=== PATIENT | female | born 1950 | race Caucasian/White ===

== ENCOUNTER 2017-06-29 17:43 | Emergency (ER) | payer MEDICARE, OTHER ==
[~2017-06-29] VITALS: Ht 152.4 cm; Wt 54.5 kg
[~2017-06-29 17:43] MED LIST: ASPIRIN 32325 MG/TAB PO; ASPIRIN E.C. 8181 MG PO; FISH OIL1000 MG PO; IMDUR 60MG60 MG/TAB PO; LEXAPRO 10MG10 MG PO; LIPITOR 40MG TA40 MG PO; LIPITOR20 MG PO; NITROSTAT0.4 MG/TAB SL; PEPCID 20MG TAB20 MG PO; PLAVIX 75MG TAB75 MG PO; PRIL40 PO; ZEBETA 5MG5 MG PO
[2017-06-29 17:52] VITALS: TEMP 97.8
[2017-06-29] MEDS ORDERED: CRESTOR5 MG PO (17:57)
[2017-06-29 18:08] LABS: BASO % 0.3 % (0.0-2.0); EOS # 0.1 (0.0-0.7); EOS % 1.9 % (0-4.0); GRAN # 2.9 (1.4-6.5); GRAN % 41.7 % (42.2-75.2); HEMATOCRIT 38.6 % (37.0-47.0); HEMOGLOBIN 12.8 g/dl (12.5-16.0); LYMPH # 3.3 (1.2-3.4); LYMPH % 47.2 % (20.0-51.0); MEAN CELL VOLUME 89 fl (80.0-100.0); MEAN CORPUSCULAR HEMOGLOBIN 29 pg (27.0-31.0); MEAN CORPUSCULAR HGB CONC 33 g/dl (33.0-37.0); MEAN PLATELET VOLUME 10.6 fl (7.4-10.4); MONO # 0.6 (0.1-0.6); MONO % 8.6 % (1.7-9.3); PLATELET COUNT 202 K/mm3 (130-400); RED BLOOD COUNT 4.36 M/mm3 (4.10-5.30); REDCELL DISTRIBUTION WIDTH-CV 13.6 % (11.5-14.5)
[2017-06-29 18:10] LABS: PROTHROMBIN TIME 11.3 SECONDS (9.7-12.8)
[2017-06-29 18:12] LABS: PARTIAL THROMBOPLASTIN TIME 26.1 SECONDS (26.0-37.0)
[2017-06-29 18:22] LABS: ALANINE AMINOTRANSFERASE 42 U/L (9-52); ALBUMIN 4.5 gm/dL (3.5-5.0); ALKALINE PHOSPHATASE 94 U/L (50-136); ANION GAP 8 mmol/L (7-16); AST,SGOT 43 U/L (15-37); BILIRUBIN,TOTAL 0.4 mg/dL (0.0-1.0); BLOOD UREA NITROGEN 16 mg/dL (7-17); CALCIUM 9.6 mg/dL (8.4-10.2); CARBON DIOXIDE 28 mmol/L (22-30); CHLORIDE 103 mmol/L (98-107); CREATININE, serum 0.93 mg/dL (0.52-1.25); GLUCOSE 102 mg/dL (74-106); POTASSIUM 3.8 mmol/L (3.4-5.0); SODIUM 139 mmol/L (137-145); TOTAL PROTEIN 7.4 gm/dL (6.4-8.2)
[2017-06-29 18:43] LABS: TROPONIN-I < 0.012 ng/mL (0.000-0.034)
[2017-06-29 20:36] VITALS: BP 114/56; PULSE 62
== END 2017-06-29 20:13 | disposition home or self-care (01) ==
LOC: COL.ER 17:43
PROVIDERS: Family Medicine
DX: R07.89 Other chest pain (principal); I25.10 Atherosclerotic heart disease of native coronary artery without angina pectoris; Z79.82 Long term (current) use of aspirin

== ENCOUNTER 2018-08-06 09:35 | Emergency (ER) | payer MEDICARE, OTHER ==
[~2018-08-06] VITALS: Ht 152.4 cm; Wt 53.6 kg
[~2018-08-06 09:35] MED LIST changes: +CRESTOR5 MG PO
[2018-08-06 09:42] VITALS: TEMP 97
[2018-08-06] MEDS ORDERED: PROTONIX 40MG T40 MG (10:15)
[2018-08-06] MEDS ORDERED: THE MEDICINE S200 M2 PO (10:18)
[2018-08-06] MEDS ORDERED: KRILL OIL 1,001 EAC1 PO (10:18)
[2018-08-06] MEDS ORDERED: CEFACLOR250 MG PO (10:19)
[2018-08-06] MEDS ORDERED: NORCO2.5 PO (11:58)
[2018-08-06 12:27] VITALS: BP 149/71; PULSE 75
== END 2018-08-06 12:25 | disposition home or self-care (01) ==
LOC: COL.ER 09:35
DX: S22.060A Wedge compression fracture of T7-T8 vertebra, initial encounter for closed fracture (principal); W10.8XXA Fall (on) (from) other stairs and steps, initial encounter; Y92.009 Unspecified place in unspecified non-institutional (private) residence as the place of occurrence of the external cause; Z79.82 Long term (current) use of aspirin
CPT/HCPCS: J1885

== ENCOUNTER 2018-08-30 12:29 | Outpatient (CLI) | payer MEDICARE, OTHER ==
[~2018-08-30] VITALS: Ht 152.5 cm; Wt 53.3 kg
[2018-08-30] VITALS (7 sets, daily range): BP systolic 103–137; BP diastolic 45–71; PULSE 60–72; TEMP 98–98.1
[~2018-08-30 12:29] MED LIST changes: +CEFACLOR250 MG PO; +KRILL OIL 1,001 EAC1 PO; +NORCO2.5 PO; +PROTONIX 40MG T40 MG PO; +THE MEDICINE S200 M2 PO
[2018-08-30] MEDS ORDERED: CRESTOR5 MG PO (13:03)
--- NOTE | 2018-08-30 13:53 | NUR ---
ALL MEDICATIONS GIVEN WITH VORB WITH MD. SEE MERGE FOR ALL MEDICATION ADMIN TIMES. SEE MERGE FOR ALL RASS ASSESSMENTS DURING AND POST PROCEDURE.
--- NOTE | 2018-08-30 14:30 | NUR ---
pt returned via bed from laboratory technical specialist. has 2 bandaids to upper back that are clean and dry. pt is drowsy, but talks to and staff. call light in reach,
--- NOTE | 2018-08-30 15:00 | NUR ---
pt sips on water, request no diet at this time, dozes in bed, no c/o
--- NOTE | 2018-08-30 16:00 | NUR ---
takes Dr Jakob rios into see pt at 1615, iv d'cd intact, pt sits on side of bed, states having soreness/tightness to back area and rib area. reviewed discharge inst. with pt and on site care and moderate sedation effects with verbal understandng.
--- NOTE | 2018-08-30 16:30 | NUR ---
pt up in room, then discharged via w/c to car with
== END 2018-08-30 16:30 | disposition home or self-care (01) ==
LOC: COL.CAR 12:29
DX: S22.050A Wedge compression fracture of T5-T6 vertebra, initial encounter for closed fracture (principal); Z90.11 Acquired absence of right breast and nipple; Z88.2 Allergy status to sulfonamides
CPT/HCPCS: J2250; J3010

== ENCOUNTER 2021-09-02 10:17 | Observation (INO) | payer MEDICARE, OTHER ==
[2021-09-02] VITALS (14 sets, daily range): BP systolic 120–138; BP diastolic 44–69; PULSE 58–65; TEMP 97.9–98.1
[~2021-09-02] VITALS: Ht 152.4 cm; Wt 54.0 kg
[2021-09-02 11:59] LABS: BASO % 0.8 % (0.0-2.0); EOS # 0.1 K/mm3 (0.0-0.7); EOS % 2.3 % (0.0-4.0); GRAN # 2.7 K/mm3 (1.4-6.5); GRAN % 50.7 % (42.2-75.2); HEMATOCRIT 41.3 % (37.0-47.0); HEMOGLOBIN 14.1 g/dl (12.5-16.0); LYMPH # 1.9 K/mm3 (1.2-3.4); LYMPH % 36.5 % (20.0-51.0); MEAN CELL VOLUME 85 fl (80.0-100.0); MEAN CORPUSCULAR HEMOGLOBIN 29 pg (27-31); MEAN CORPUSCULAR HGB CONC 34 g/dl (33.0-37.0); MEAN PLATELET VOLUME 11.1 fl (7.4-10.4); MONO # 0.5 K/mm3 (0.1-0.6); MONO % 9.3 % (1.7-9.3); PLATELET COUNT 245 K/mm3 (130-400); RED BLOOD COUNT 4.87 M/mm3 (4.10-5.30)
[2021-09-02 12:09] LABS: ALANINE AMINOTRANSFERASE 17 U/L (0-55); ALKALINE PHOSPHATASE 73 U/L (40-150); ANION GAP 10 mmol/L (7-16); AST,SGOT 17 U/L (5-34); BILIRUBIN,TOTAL 0.5 mg/dL (0.2-1.2); BLOOD UREA NITROGEN 14 mg/dL (10-20); CALCIUM 9.6 mg/dL (8.4-10.2); CARBON DIOXIDE 27 mmol/L (23-31); CHLORIDE 104 mmol/L (98-107); CREATININE, serum 0.86 mg/dL (0.57-1.11); GLUCOSE 103 mg/dL (70-99); LIPASE 24 U/L (8-78); POTASSIUM 3.8 mmol/L (3.5-4.5); SODIUM 141 mmol/L (136-145); TOTAL PROTEIN 7.4 gm/dL (6.2-8.1)
[2021-09-02 12:16] LABS: TROPONIN-I < 0.010 ng/mL (0.00-0.033)
--- NOTE | 2021-09-02 15:36 | NUR ---
PATIENT ALERT AND ORIENTED, VERBALIZES UNDERSTANDING PROCEDURE. NO REPORTS OF CHEST PAIN AT THIS TIME. PATIENT SIGNS CONSENT. TO UPDATE FAMILY. PLEASE SEE MERGE FOR DETAILS ABOUT PROCEDURE INCLUDING HEMODYNAMIC MONITORING WELL MEDICATION ADMINISTRATION.
--- NOTE | 2021-09-02 16:00 | NUR ---
Pt arrived to medical unit room 308 from slab conditioner supervisor at this time. Oriented pt to room, post-op checks initiated. Vitals stable at this time and right femoral access site CDI, w/o s/s complication.
[2021-09-02] MEDS ORDERED: CRESTOR 10MG10 MG PO (17:47)
--- NOTE | 2021-09-02 19:02 | NUR ---
PATIENT ADMITTED FROM INFRASTRUCTURE TECH, FEM SITE STABLE, CLEAN DRY AND INTACT. PLESANT. FLAT TIME UNTIL 2200. NO C/O PAIN. NO SIGNIFICANT EVENTS, ADMISSION COMPLETED.
--- NOTE | 2021-09-02 20:20 | NUR ---
Patient is resting in bed with at the bedside. Alert and oriented x 4, VSS. Telemetry in place, NSR. Getting 1/2 NS. Right femoral puncure clean, dry intact. No edema BLE. Good pulses. Assessment completed, meds provided. No other needs at this time. Call kala cuevas.
[2021-09-03 00:11] VITALS: BP 135/52; PULSE 61; TEMP 97.8
[2021-09-03 03:55] VITALS: BP 131/54; PULSE 58; TEMP 97.5
[2021-09-03 06:14] LABS: BASO % 0.5 % (0.0-2.0); EOS # 0.2 K/mm3 (0.0-0.7); EOS % 2.6 % (0.0-4.0); HEMATOCRIT 37.5 % (37.0-47.0); HEMOGLOBIN 12.6 g/dl (12.5-16.0); LYMPH # 2.5 K/mm3 (1.2-3.4); LYMPH % 38.2 % (20.0-51.0); MEAN CELL VOLUME 85 fl (80.0-100.0); MEAN CORPUSCULAR HEMOGLOBIN 29 pg (27-31); MEAN CORPUSCULAR HGB CONC 34 g/dl (33.0-37.0); MEAN PLATELET VOLUME 10.7 fl (7.4-10.4); MONO # 0.7 K/mm3 (0.1-0.6); MONO % 11.5 % (1.7-9.3); PLATELET COUNT 211 K/mm3 (130-400)
--- NOTE | 2021-09-03 06:17 | NUR ---
Patient has had a calm night. She just complained of some headache, tylenol provided. All needs met. Report will be given to day RN.
[2021-09-03 06:36] LABS: CHOLESTEROL RISK RATIO 3.1; CREATININE, serum 0.81 mg/dL (0.57-1.11); POTASSIUM 4.3 mmol/L (3.5-4.5)
[2021-09-03 07:53] VITALS: BP 116/62; PULSE 71; TEMP 97.7
--- NOTE | 2021-09-03 10:16 | NUR ---
funeral workers met with patient to discuss discharge plan. Patient is scheduled to discharge today. She currently lives at home with her Lan ([phone]). Patient reports that she is independent with her activities of daily living and does not utilize any DME to assist with mobility. Patient reports that she has no home oxygen needs. PCP is Dr. Short and she utilizes [facility] for short term medications and [facility] for [facility] medications. Patient reports that she does have a [facility] established listing her . Patient verbalizes no concerns with discharge plan today. Discharge plan: Home with spouse later today.
[2021-09-03 11:08] VITALS: BP 109/55; PULSE 63; TEMP 98
--- NOTE | 2021-09-03 11:34 | NUR ---
First visit from the java lead. No needs right now.
== END 2021-09-03 09:50 | disposition home or self-care (01) ==
LOC: COL.ER 10:17 → MEDICAL 14:13
PROVIDERS: Nurse Practitioner; Physician Assistant; ADMIT Student in an Organized Health Care Education/Training Program
DX: R07.89 Other chest pain (principal); I25.10 Atherosclerotic heart disease of native coronary artery without angina pectoris; I35.8 Other nonrheumatic aortic valve disorders; I10 Essential (primary) hypertension; K21.9 Gastro-esophageal reflux disease without esophagitis; R51.9 Headache, unspecified; E78.5 Hyperlipidemia, unspecified; Z95.5 Presence of coronary angioplasty implant and graft; Z79.899 Other long term (current) drug therapy; Z85.3 Personal history of malignant neoplasm of breast; Z85.828 Personal history of other malignant neoplasm of skin
CPT/HCPCS: C1760; C1894; G0378; J1644; J2250; J3010